=== PATIENT | male | born 2000 | race Caucasian/White ===

== ENCOUNTER 2023-10-09 09:30 | Emergency (ER) | payer BC ==
[~2023-10-09] VITALS: Ht 188 cm; Wt 87.0 kg
[2023-10-09 09:41] VITALS: O2SAT 97
[2023-10-09 11:19] VITALS: BP 127/72; PULSE 58; RESP 12; TEMP 98.2
== END 2023-10-09 11:22 | disposition home or self-care (01) ==
LOC: ER 10:16
DX: S93.402A Sprain of unspecified ligament of left ankle, initial encounter (principal); X58.XXXA Exposure to other specified factors, initial encounter; Y93.89 Activity, other specified; Y92.89 Other specified places as the place of occurrence of the external cause; Y99.8 Other external cause status
CPT/HCPCS: 73610; 99283